=== PATIENT | female | born 1980 | race Caucasian/White ===

== ENCOUNTER 2018-12-11 21:59 | Emergency (ER) | payer MEDICAID ==
[~2018-12-11] VITALS: Ht 160 cm; Wt 90.0 kg
[~2018-12-11 21:59] MED LIST: CLIN300C11 PO; HYDR-4226 PO; LISD30CA PO; LORA1TAB PO; SULF-109 PO
--- NOTE | 2018-12-11 22:19 | ED EENT ---
History of Present Illness General Chief Complaint: Oral/Throat Problems Stated Complaint: SORE THROAT Nursing Triage Note: Pt ambulates to triage with c/o sore throat, coughing, n/v x 2 wks. Pt states it wakes up her up at night. Source: patient Exam Limitations: no limitations History of Present Illness Date Seen by Provider: Dec 11, 2018 Time Seen by Provider: 22:19 Allergies and Home Medications Allergies Coded Allergies: No Known Drug Allergies (Unverified , 08/08/09) Home Medications Benzonatate 100 Mg Capsule, 200 MG PO Q8H PRN for COUGH Prescribed by: MAXIME SCHMITT on 12/11/182236 Clindamycin HCl 300 Mg Capsule, 300 MG PO Q6H Prescribed by: NATHALY ARMSTRONG on 12/16/161914 Hydrocodone/Acetaminophen 1 Each Tablet, 1 EACH PO Q4H PRN for PAIN-SEVERE dO NOT FILL UNLESS CLINDAMYCIN IS ALSO FILLED Prescribed by: NATHALY ARMSTRONG on 12/16/161914 Lisdexamfetamine Dimesylate 30 Mg Capsule, 30 MG PO DAILY, (Reported) Lorazepam 1 Mg Tablet, 1 MG PO HS PRN, (Reported) Prednisone 20 Mg Tab, 40 MG PO DAILY Prescribed by: MAXIME SCHMITT on 12/11/182236 Sulfamethoxazole/Trimethoprim 1 Tab Tablet, 1 TAB PO BID Prescribed by: NATHALY BUNCH on 08/08/09 0740 Past Wioopkk-Zblycz-Jetoie Hx Patient Social History Alcohol Use: Denies Use Recreational Drug Use: No Smoking Status: Current Everyday Smoker Type Used: Cigarettes 2nd Hand Smoke Exposure: No Recent Foreign Travel: No Contact w/Someone Who Travel: No Recent Infectious Disease Expo: No Recent Hopitalizations: No Physical Abuse: No Sexual Abuse: No Mistreated: No Fear: No Seasonal Allergies Seasonal Allergies: No Past Medical History Surgeries: Yes (D&C) Respiratory: No Cardiac: No 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 oz. 72.769042cn; 35.00 BMI Method:Stated Progress/Results/Core Measures Results/Orders My Orders Orders - MAXIME SCHMITT Rx-Albuterol Inhaler (Rx-Proair) (12/11/18 22:30) Prednisone Tablet (Deltasone Tablet) (12/11/18 22:30) Benzonatate Capsule (Tessalon Perles) (12/11/18 22:30) Vital Signs/I&O 12/11/18 22:04 Temp 36.9 Pulse 103 Resp 20 B/P (MAP) 154/95 (114) Pulse Ox 100 O2 Delivery Room Air Blood Pressure Mean: 114 POS Departure Impression Primary Impression: Acute viral bronchiolitis Disposition: HOME, SELF-CARE Condition: Improved Departure-Patient Inst. Decision time for Depature: 22:33 Referrals: NO,LOCAL PHYSICIAN (PCP/Family) Primary Care Physician Patient Instructions: Acute Bronchitis, Adult (DC) Add. Discharge Instructions: All discharge instructions reviewed with patient and/or family. Voiced understanding. Medications as instructed. Evku-mih-eawsgza Tylenol, Motrin, decongestants and and histamines as directed for symptomatic relief. Afrin n booker spray [id number] as needed. Follow-up with your primary care provider of choice for recheck as outpatient. Call for appointment time. Return to the emergency department for worsened symptoms or any other concerns. Scripts Benzonatate (TESSALON PERLES) 100 Mg Capsule 200 MG PO Q8H PRN for COUGH, #30 CAP 0 Refills Prov: MAXIME SCHMITT 12/11/18 Prednisone (Prednisone) 20 Mg Tab 40 MG PO DAILY, #10 TAB 0 Refills Prov: MAXIME SCHMITT 12/11/18 MAXIME SCHMITT Dec 11, 2018 22:19 POS
[2018-12-11] MEDS ORDERED: RX-ALBUTEROL INHALER (PROAIR) 8.5 GM IH STA (22:30)
[2018-12-11] MEDS ORDERED: predniSONE 20 MG TAB PO ONE (22:30)
[2018-12-11] MEDS ORDERED: BENZONATATE 100 MG (TESSALON) CAPSULE PO ONE (22:30)
[2018-12-11] MEDS ORDERED: PRD20T PO (22:37)
[2018-12-11] MEDS ORDERED: BENZ100C18 PO (22:37)
[2018-12-11 22:48] VITALS: BP 135/89
== END 2018-12-11 22:48 | disposition home or self-care (01) ==
LOC: EDUNIT# 21:59 → ER 22:00
DX: J21.8 Acute bronchiolitis due to other specified organisms (principal); F17.210 Nicotine dependence, cigarettes, uncomplicated
CPT/HCPCS: 99283

== ENCOUNTER 2019-10-03 18:10 | Emergency (ER) | payer MEDICAID ==
[~2019-10-03] VITALS: Ht 160 cm; Wt 93.7 kg
[~2019-10-03 18:10] MED LIST changes: +BENZ100C18 PO; +PRD20T PO
[2019-10-03 18:29] LABS: BILIRUBIN,URINE NEGATIVE (NEGATIVE); CLARITY,URINE CLEAR; COLOR,URINE YELLOW; GLUCOSE, URINE (UA) NEGATIVE (NEGATIVE); KETONES,URINE NEGATIVE (NEGATIVE); LEUKOCYTE ESTERASE ,URINE 2+ (NEGATIVE); NITRITE,URINE POSITIVE (NEGATIVE); PH,URINE 5.5 (5-9); PROTEIN,URINE 1+ (NEGATIVE)
--- NOTE | 2019-10-03 18:37 | ED Back Pain ---
General Chief Complaint: Back Problems Stated Complaint: LOWER BACK PAIN Nursing Triage Note: pt presents to ed with complaints of uti s/s starting last week and r flank pain starting today along with nausea and chills. Nursing Sepsis Screen: No Definite Risk Source of Information: Patient Exam Limitations: No Limitations History of Present Illness Date Seen by Provider: Oct 03, 2019 Time Seen by Provider: 18:34 Initial Comments To ER with reports of urinary tract infection symptoms that began last week. She treated this at home with increased fluid intake and cranberry juice and symptoms began to get better. 2-3 days ago she started on [id number] AZO supplement which seemed to alleviate her symptoms altogether but this morning she awakened with right flank pain nausea and chills. Location: Paraspinous Muscles Timing/Duration: 1 Week Severity: Moderate Pain/Injury Location: Back Associated Symptoms: denies symptoms Allergies and Home Medications Allergies Coded Allergies: No Known Drug Allergies (Unverified , 08/08/09) Home Medications Benzonatate 100 Mg Capsule, 200 MG PO Q8H PRN for COUGH Prescribed by: MAXIME SCHMITT on 12/11/182236 Clindamycin HCl 300 Mg Capsule, 300 MG PO Q6H Prescribed by: NATHALY ARMSTRONG on 12/16/161914 Hydrocodone/Acetaminophen 1 Each Tablet, 1 EACH PO Q4H PRN for PAIN-SEVERE dO NOT FILL UNLESS CLINDAMYCIN IS ALSO FILLED Prescribed by: NATHALY ARMSTRONG on 12/16/161914 Lisdexamfetamine Dimesylate 30 Mg Capsule, 30 MG PO DAILY, (Reported) Lorazepam 1 Mg Tablet, 1 MG PO HS PRN, (Reported) Prednisone 20 Mg Tab, 40 MG PO DAILY Prescribed by: MAXIME SCHMITT on 12/11/182236 Sulfamethoxazole/Trimethoprim 1 Tab Tablet, 1 TAB PO BID Prescribed by: NATHALY BUNCH on 08/08/09 0740 Patient Home Medication List Home Medication List Reviewed: Yes (it's like Pyridium it doesn't treat the infection just) Review of Systems Constitutional: see HPI, chills EENTM: see HPI Respiratory: no symptoms reported Cardiovascular: no symptoms reported Gastrointestinal: nausea Genitourinary: no symptoms reported Musculoskeletal: no symptoms reported Skin: no symptoms reported Psychiatric/Neurological: No Symptoms Reported Past Zbujgam-Finkwm-Lkpgfj Hx Patient Social History Alcohol Use: Occasionally Uses Recreational Drug Use: No Smoking Status: Current Everyday Smoker Type Used: Cigarettes 2nd Hand Smoke Exposure: No Recent Foreign Travel: No Contact w/Someone Who Travel: No Recent Infectious Disease Expo: No Recent Hopitalizations: No Physical Abuse: No Sexual Abuse: No Mistreated: No Fear: No Seasonal Allergies Seasonal Allergies: No Past Medical History Surgeries: Yes (D&C) Respiratory: No Cardiac: No 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 oz. 72.727218ew; 36.00 BMI Method:Stated General Appearance: No Apparent Distress Neck: Full Range of Motion, Normal Inspection Cardiovascular: Regular Rate, Rhythm, Normal Peripheral Pulses Respiratory: Lungs Clear, Normal Breath Sounds, No Accessory Muscle Use, No Respiratory Distress Gastrointestinal: Normal Bowel Sounds, Non Tender Back: CVA Tenderness (R) Extremity: Normal Capillary Refill, Normal Inspection Neurologic/Psychiatric: Alert, Oriented x3 Skin: Normal Color, Warm/Dry Progress/Results/Core Measures Results/Orders Lab Results Laboratory Tests Test 10/03/19 18:23 10/03/19 18:27 Range/Units Urine Color YELLOW Urine Clarity CLEAR Urine pH 5.5 5-9 Urine Specific [place] 1.015 L 1.016-1.022 Urine Protein 1+ H NEGATIVE Urine Glucose (UA) NEGATIVE NEGATIVE Urine Ketones NEGATIVE NEGATIVE Urine Nitrite POSITIVE H NEGATIVE Urine Bilirubin NEGATIVE NEGATIVE Urine Urobilinogen 0.2 < = 1.0 MG/DL Urine Leukocyte Esterase 2+ H NEGATIVE Urine RBC (Auto) 1+ H NEGATIVE Urine RBC 2-5 H /HPF Urine WBC 50-100 H /HPF Urine Crystals PRESENT H /LPF Urine Amorphous Sediment FEW LUIS CARLOS URATES H /LPF Urine Bacteria FEW H /HPF Urine Casts NONE /LPF Urine Mucus NEGATIVE /LPF Urine Culture Indicated YES Urine Test NEGATIVE NEGATIVE White Blood Count 15.5 H 4.3-11.0 10^3/uL Red Blood Count 5.05 4.35-5.85 10^6/uL Hemoglobin 15.0 11.5-16.0 G/DL Hematocrit 45 35-52 % Mean Corpuscular Volume 89 80-99 FL Mean Corpuscular Hemoglobin 30 25-34 PG Mean Corpuscular Hemoglobin Concent 34 32-36 G/DL Red Cell Distribution Width 13.9 10.0-14.5 % Platelet Count 498 H 130-400 10^3/uL Mean Platelet Volume 9.0 7.4-10.4 FL Neutrophils (%) (Auto) 79 H 42-75 % Lymphocytes (%) (Auto) 16 12-44 % Monocytes (%) (Auto) 4 0-12 % Eosinophils (%) (Auto) 1 0-10 % Basophils (%) (Auto) 0 0-10 % Neutrophils # (Auto) 12.2 H 1.8-7.8 X 10^3 Lymphocytes # (Auto) 2.5 1.0-4.0 X 10^3 Monocytes # (Auto) 0.7 0.0-1.0 X 10^3 Eosinophils # (Auto) 0.1 0.0-0.3 10^3/uL Basophils # (Auto) 0.0 0.0-0.1 10^3/uL Sodium Level 137 135-145 MMOL/L Potassium Level 3.9 3.6-5.0 MMOL/L Chloride Level 105 98-107 MMOL/L Carbon Dioxide Level 19 L 21-32 MMOL/L Anion Gap 13 5-14 MMOL/L Blood Urea Nitrogen 6 L 7-18 MG/DL Creatinine 0.69 0.60-1.30 MG/DL Estimat Glomerular Filtration Rate > 60 BUN/Creatinine Ratio 9 Glucose Level 118 H 70-105 MG/DL Calcium Level 9.3 8.5-10.1 MG/DL Corrected Calcium 9.2 8.5-10.1 MG/DL Total Bilirubin 0.5 0.1-1.0 MG/DL Aspartate Amino Transf (AST/SGOT) 11 5-34 U/L Alanine Aminotransferase (ALT/SGPT) 11 0-55 U/L Alkaline Phosphatase 90 40-136 U/L Total Protein 7.6 6.4-8.2 GM/DL Albumin 4.1 3.2-4.5 GM/DL My Orders Orders - NATHALY ARMSTRONG APRN Ua Culture If Indicated (10/03/19 18:21) Hcg,Qualitative Urine (10/03/19 18:21) Cbc With Automated Diff (10/03/19 18:32) Comprehensive Metabolic Panel (10/03/19 18:32) Ed Iv/Invasive Line Start (10/03/19 18:32) Ns Iv 1000 Ml (Sodium Chloride 0.9%) (10/03/19 18:45) Manual Differential (10/03/19 18:27) Ceftriaxone For Iv Use (Rocephin For I (10/03/19 19:00) Vital Signs/I&O 10/03/19 18:29 Temp 36.5 Pulse 117 Resp 20 B/P (MAP) 135/98 (110) Pulse Ox 97 Blood Pressure Mean: 110 Departure Impression Primary Impression: Pyelonephritis of right kidney Disposition: HOME, SELF-CARE Condition: Stable Departure-Patient Inst. Decision time for Depature: 18:56 Referrals: NO,LOCAL PHYSICIAN (PCP/Family) Primary Care Physician Patient Instructions: Kidney Infection (DC) Add. Discharge Instructions: 1. Tylenol and Motrin for any pain. Return to ER for any fevers, vomiting or nausea that is so bad that it prevents U from taking the antibiotics. The oral antibiotics tomorrow as directed. Follow-up with your doctor next week for recheck. All discharge instructions reviewed with patient and/or family. Voiced understanding. Scripts Sulfamethoxazole/Trimethoprim (Bactrim Ds Tablet) 1 Each Tablet 1 EACH PO BID, #14 TAB Prov: NATHALY ARMSTRONG APRN 10/03/19 Work/School Note: Work Release Form Date Seen in the Emergency Department: Oct 03, 2019 Return to Work: Oct 06, 2019 NATHALY ARMSTRONG APRN Oct 03, 2019 18:37
[2019-10-03 18:39] LABS: BACTERIA,URINE FEW /HPF; WBC,URINE 50-100 /HPF
[2019-10-03 18:39] LABS: BASOPHILS % (AUTO) 0 % (0-10); EOSINOPHILS # (AUTO) 0.1 10^3/uL (0.0-0.3); EOSINOPHILS % (AUTO) 1 % (0-10); HEMATOCRIT 45 % (35-52); LYMPHOCYTES # (AUTO) 2.5 X 10^3 (1.0-4.0); LYMPHOCYTES % (AUTO) 16 % (12-44); MEAN CORPUSCULAR HEMOGLOBIN 30 PG (25-34); MEAN CORPUSCULAR HGB CONC 34 G/DL (32-36); MEAN CORPUSCULAR VOLUME 89 FL (80-99); MONOCYTES # (AUTO) 0.7 X 10^3 (0.0-1.0); MONOCYTES % (AUTO) 4 % (0-12); NEUTROPHILS # (AUTO) 12.2 X 10^3 (1.8-7.8); NEUTROPHILS % (AUTO) 79 % (42-75); PLATELET COUNT 498 10^3/uL (130-400); RED CELL DISTRIBUTION WIDTH 13.9 % (10.0-14.5); WHITE BLOOD COUNT 15.5 10^3/uL (4.3-11.0)
[2019-10-03 18:40] LABS: AMORPHOUS SEDIMENT,UR FEW AMOR URATES /LPF
[2019-10-03 18:44] LABS: ALBUMIN 4.1 GM/DL (3.2-4.5); CHLORIDE 105 MMOL/L (98-107); POTASSIUM 3.9 MMOL/L (3.6-5.0); SODIUM 137 MMOL/L (135-145)
[2019-10-03 18:45] LABS: CALCIUM 9.3 MG/DL (8.5-10.1)
[2019-10-03] MEDS ORDERED: NS IV 1000 ML 1,000 ML IV SCH (18:45)
[2019-10-03 18:46] LABS: GLUCOSE 118 MG/DL (70-105); TOTAL PROTEIN 7.6 GM/DL (6.4-8.2)
[2019-10-03 18:47] LABS: CARBON DIOXIDE 19 MMOL/L (21-32)
[2019-10-03 18:48] LABS: BILIRUBIN,TOTAL 0.5 MG/DL (0.1-1.0)
[2019-10-03 18:50] LABS: ALKALINE PHOSPHATASE 90 U/L (40-136); CREATININE SERUM 0.69 MG/DL (0.60-1.30); GFR ESTIMATED > 60
[2019-10-03 18:51] LABS: BUN/CREATININE RATIO 9
[2019-10-03 18:53] LABS: ALANINE AMINOTRANSFERASE 11 U/L (0-55)
[2019-10-03] MEDS ORDERED: SULF1TAB35 PO (18:58)
[2019-10-03] MEDS ORDERED: cefTRIAXone FOR IV USE 2,000 MG in WATER (STERILE) FOR INJECTION 20 ML IV ONE (19:00)
[2019-10-03 19:15] LABS: BAND NEUTROPHILS 1 %; LYMPHOCYTES % (MANUAL) 19 %; MONOCYTES % (MANUAL) 3 %; NEUTROPHILS % (MANUAL) 77 %; RBC MORPH NORMAL
[2019-10-03 19:20] VITALS: BP 135/98
== END 2019-10-03 19:20 | disposition home or self-care (01) ==
LOC: EDUNIT# 18:10 → ER 18:14
DX: N12 Tubulo-interstitial nephritis, not specified as acute or chronic (principal); F17.210 Nicotine dependence, cigarettes, uncomplicated; Z79.52 Long term (current) use of systemic steroids
CPT/HCPCS: 36415; 80053; 81000; 84703; 85007; 85027; 87077; 87088; 87186

== ENCOUNTER 2019-11-22 16:27 | Emergency (ER) | payer MEDICAID ==
[~2019-11-22] VITALS: Ht 162 cm; Wt 108.8 kg
[~2019-11-22 16:27] MED LIST changes: +SULF1TAB35 PO
[2019-11-22 16:59] LABS: BASOPHILS % (AUTO) 0 % (0-10); EOSINOPHILS # (AUTO) 0.1 10^3/uL (0.0-0.3); EOSINOPHILS % (AUTO) 1 % (0-10); HEMATOCRIT 44 % (35-52); HEMOGLOBIN 14.8 g/dL (11.5-16.0); LYMPHOCYTES # (AUTO) 2.4 10^3/uL (1.0-4.0); LYMPHOCYTES % (AUTO) 26 % (12-44); MEAN CORPUSCULAR HEMOGLOBIN 30 pg (25-34); MEAN CORPUSCULAR HGB CONC 33 g/dL (32-36); MEAN CORPUSCULAR VOLUME 89 fL (80-99); MONOCYTES # (AUTO) 0.5 10^3/uL (0.0-1.0); MONOCYTES % (AUTO) 5 % (0-12); NEUTROPHILS # (AUTO) 6.4 10^3/uL (1.8-7.8); NEUTROPHILS % (AUTO) 67 % (42-75); PLATELET COUNT 429 10^3/uL (130-400); WHITE BLOOD COUNT 9.6 10^3/uL (4.3-11.0)
[2019-11-22] MEDS ORDERED: TETANUS,DIPTH,PERTUSS P/F (BOOSTRIX) 0.5 ML VIAL IM ONE (17:00)
[2019-11-22 17:12] LABS: ALBUMIN 4.4 GM/DL (3.2-4.5); CHLORIDE 104 MMOL/L (98-107); POTASSIUM 3.6 MMOL/L (3.6-5.0); SODIUM 140 MMOL/L (135-145)
[2019-11-22 17:13] LABS: CALCIUM 9.4 MG/DL (8.5-10.1)
[2019-11-22 17:15] LABS: GLUCOSE 91 MG/DL (70-105); TOTAL PROTEIN 7.6 GM/DL (6.4-8.2)
[2019-11-22 17:16] LABS: CARBON DIOXIDE 22 MMOL/L (21-32)
[2019-11-22 17:17] LABS: BILIRUBIN,TOTAL 0.4 MG/DL (0.1-1.0)
[2019-11-22 17:18] LABS: ALKALINE PHOSPHATASE 88 U/L (40-136); CREATININE SERUM 0.71 MG/DL (0.60-1.30); GFR ESTIMATED > 60
[2019-11-22 17:19] LABS: BUN/CREATININE RATIO 14
[2019-11-22 17:21] LABS: ALANINE AMINOTRANSFERASE 12 U/L (0-55); MAGNESIUM 1.8 MG/DL (1.6-2.4)
[2019-11-22 17:37] LABS: BILIRUBIN,URINE NEGATIVE (NEGATIVE); CLARITY,URINE CLEAR; COLOR,URINE YELLOW; GLUCOSE, URINE (UA) NEGATIVE (NEGATIVE); KETONES,URINE NEGATIVE (NEGATIVE); LEUKOCYTE ESTERASE ,URINE NEGATIVE (NEGATIVE); NITRITE,URINE NEGATIVE (NEGATIVE); PROTEIN,URINE NEGATIVE (NEGATIVE)
[2019-11-22 17:49] LABS: BACTERIA,URINE FEW /HPF; RBC,URINE RARE /HPF
--- NOTE | 2019-11-22 18:31 | ED Syncope ---
General Chief Complaint: Dizziness/Syncope Stated Complaint: SYNCOPE Nursing Triage Note: PT REPORTS FAINTING AROUND 1540 AFTER COUGHING REALLY HARD. PT REPORTS COUGH IS CHRONIC FROM SMOKING. Source of Information: Patient Exam Limitations: No Limitations History of Present Illness Date Seen by Provider: Nov 22, 2019 Time Seen by Provider: 16:47 Initial Comments This 39-year-old woman presents to the emergency room with complaints of a syncopal episode. She was walking and sat down at a picnic table. She notes having a harsh coughing fit. She denies any prodrome of lightheadedness, dizziness, chest pain, shortness of breath, etc. She recalls her head hitting the ground. She has subtle abrasion on her left face. She reports her cough is not a new problem. She has had paroxysms of coughing related to smoking for at least 6 months, prior to the COVID pandemic. She denies other symptoms of COVID such as headache, diarrhea, fever, sore throat, etc. She has no known COVID exposures. She denies any prior experiences of syncope. Allergies and Home Medications Allergies Coded Allergies: No Known Drug Allergies (Unverified , 08/08/09) Home Medications Benzonatate 100 Mg Capsule, 200 MG PO Q8H PRN for COUGH Prescribed by: MAXIME SCHMITT on 12/11/182236 Clindamycin HCl 300 Mg Capsule, 300 MG PO Q6H Prescribed by: NATHALY ARMSTRONG on 12/16/161914 Hydrocodone/Acetaminophen 1 Each Tablet, 1 EACH PO Q4H PRN for PAIN-SEVERE dO NOT FILL UNLESS CLINDAMYCIN IS ALSO FILLED Prescribed by: NATHALY ARMSTRONG on 12/16/161914 Lisdexamfetamine Dimesylate 30 Mg Capsule, 30 MG PO DAILY, (Reported) Lorazepam 1 Mg Tablet, 1 MG PO HS PRN, (Reported) Prednisone 20 Mg Tab, 40 MG PO DAILY Prescribed by: MAXIME SCHMITT on 12/11/182236 Sulfamethoxazole/Trimethoprim 1 Tab Tablet, 1 TAB PO BID Prescribed by: NATHALY BUNCH on 08/08/09 0740 Sulfamethoxazole/Trimethoprim 1 Each Tablet, 1 EACH PO BID Prescribed by: NATHALY ARMSTRONG on 10/03/19 1858 Patient Home Medication List Home Medication List Reviewed: Yes Review of Systems Constitutional: no symptoms reported EENTM: no symptoms reported Respiratory: see HPI Cardiovascular: see HPI Gastrointestinal: no symptoms reported Genitourinary: no symptoms reported : No Musculoskeletal: no symptoms reported Skin: no symptoms reported Psychiatric/Neurological: No Symptoms Reported Past Yxadngf-Lgqbwq-Xytofb Hx Past Med/Social Hx: Reviewed Nursing Past Med/Soc Hx Patient Social History Alcohol Use: Occasionally Uses Recreational Drug Use: Yes Drug of Choice: MARIJUANA Smoking Status: Current Everyday Smoker Type Used: Cigarettes 2nd Hand Smoke Exposure: No Recent Foreign Travel: No Contact w/Someone Who Travel: No Recent Infectious Disease Expo: No Recent Hopitalizations: No Seasonal Allergies Seasonal Allergies: No Past Medical History Surgeries: Yes (D&C) Respiratory: No Cardiac: No Neurological: Yes (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 oz. 72.347018fi; 41.00 BMI Method:Stated General Appearance: No Apparent Distress, WD/WN HEENT: PERRL/EOMI, Other (no dental injury. 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 Motor/Sensory: No Sensory Deficit, No Pronator Drift Skin: Normal Color, Warm/Dry Progress/Results/Core Measures Results/Orders Lab Results Laboratory Tests Test 11/22/19 16:41 11/22/19 17:28 Range/Units White Blood Count 9.6 4.3-11.0 10^3/uL Red Blood Count 4.99 3.80-5.11 10^6/uL Hemoglobin 14.8 11.5-16.0 g/dL Hematocrit 44 35-52 % Mean Corpuscular Volume 89 80-99 fL Mean Corpuscular Hemoglobin 30 25-34 pg Mean Corpuscular Hemoglobin Concent 33 32-36 g/dL Red Cell Distribution Width 13.6 10.0-14.5 % Platelet Count 429 H 130-400 10^3/uL Mean Platelet Volume 9.0 9.0-12.2 fL Immature Granulocyte % (Auto) 0 % Neutrophils (%) (Auto) 67 42-75 % Lymphocytes (%) (Auto) 26 12-44 % Monocytes (%) (Auto) 5 0-12 % Eosinophils (%) (Auto) 1 0-10 % Basophils (%) (Auto) 0 0-10 % Neutrophils # (Auto) 6.4 1.8-7.8 10^3/uL Lymphocytes # (Auto) 2.4 1.0-4.0 10^3/uL Monocytes # (Auto) 0.5 0.0-1.0 10^3/uL Eosinophils # (Auto) 0.1 0.0-0.3 10^3/uL Basophils # (Auto) 0.0 0.0-0.1 10^3/uL Immature Granulocyte # (Auto) 0.0 0.0-0.1 10^3/uL Sodium Level 140 135-145 MMOL/L Potassium Level 3.6 3.6-5.0 MMOL/L Chloride Level 104 98-107 MMOL/L Carbon Dioxide Level 22 21-32 MMOL/L Anion Gap 14 5-14 MMOL/L Blood Urea Nitrogen 10 7-18 MG/DL Creatinine 0.71 0.60-1.30 MG/DL Estimat Glomerular Filtration Rate > 60 BUN/Creatinine Ratio 14 Glucose Level 91 70-105 MG/DL Calcium Level 9.4 8.5-10.1 MG/DL Corrected Calcium 9.1 8.5-10.1 MG/DL Magnesium Level 1.8 1.6-2.4 MG/DL Total Bilirubin 0.4 0.1-1.0 MG/DL Aspartate Amino Transf (AST/SGOT) 13 5-34 U/L Alanine Aminotransferase (ALT/SGPT) 12 0-55 U/L Alkaline Phosphatase 88 40-136 U/L Troponin I < 0.028 <0.028 NG/ML Total Protein 7.6 6.4-8.2 GM/DL Albumin 4.4 3.2-4.5 GM/DL Serum Test, Qualitative NEGATIVE NEGATIVE Urine Color YELLOW Urine Clarity CLEAR Urine pH 6.0 5-9 Urine Specific [place] 1.025 H 1.016-1.022 Urine Protein NEGATIVE NEGATIVE Urine Glucose (UA) NEGATIVE NEGATIVE Urine Ketones NEGATIVE NEGATIVE Urine Nitrite NEGATIVE NEGATIVE Urine Bilirubin NEGATIVE NEGATIVE Urine Urobilinogen 0.2 < = 1.0 MG/DL Urine Leukocyte Esterase NEGATIVE NEGATIVE Urine RBC (Auto) NEGATIVE NEGATIVE Urine RBC RARE /HPF Urine WBC NONE /HPF Urine Squamous Epithelial Cells 2-5 /HPF Urine Crystals NONE /LPF Urine Bacteria FEW H /HPF Urine Casts NONE /LPF Urine Mucus NEGATIVE /LPF Urine Culture Indicated NO My Orders Orders - PEDRO GAMING MD Cbc With Automated Diff (11/22/19 16:47) Comprehensive Metabolic Panel (11/22/19 16:47) Hcg,Qualitative Serum (11/22/19 16:47) Magnesium (11/22/19 16:47) Troponin I (11/22/19 16:47) Ua Culture If Indicated (11/22/19 16:47) Ed Iv/Invasive Line Start (11/22/19 16:47) Ekg Tracing (11/22/19 16:47) Monitor-Rhythm Ecg Trace Only (11/22/19 16:47) Dipht,Pertuss(Acell),Tet Adult (Boostrix (11/22/19 17:00) Medications Given in ED Current Medications Medications Dose Ordered Sig/Matt Route Start Time Stop Time Status Last Admin Dose Admin Diphtheria/ Tetanus/Acell Pertussis 0.5 ml ONCE ONCE IM 11/22/19 17:00 11/22/19 17:01 DC 11/22/19 17:21 0.5 ML Vital Signs/I&O 11/22/19 11/22/19 16:30 18:32 Temp 36.4 36.7 Pulse 99 93 Resp 16 16 B/P (MAP) 134/111 (119) 105/83 Pulse Ox 97 97 O2 Delivery Room Air Room Air Blood Pressure Mean: 119 Progress Progress Note : Progress Note Patient was given a tetanus booster. Workup was unremarkable. I suspect her syncope was related to vasovagal response. She was advised to follow up closely with her primary care provider and work hard toward quitting smoking. Initial ECG Impression Date: Nov 22, 2019 Initial ECG Impression Time: 16:52 Initial ECG Rate: 83 Initial ECG Rhythm: Normal Sinus Initial ECG Impression: Normal Comment Normal sinus rhythm with no ST elevation or depression. No abnormal intervals or axis deviation. Departure Impression Primary Impression: Syncope Qualified Codes: R55 - Syncope and collapse Additional Impressions: Facial abrasion Qualified Codes: S00.81XA - Abrasion of other part of head, initial encounter Chronic cough Disposition: HOME, SELF-CARE Condition: Improved Departure-Patient Inst. Decision time for Depature: 18:31 Referrals: NO,LOCAL PHYSICIAN (PCP/Family) Primary Care Physician Patient Instructions: Syncope (Fainting) (DC), Vasovagal Response Add. Discharge Instructions: Drink plenty of clear liquids to stay well-hydrated. Work toward quitting smoking. Follow-up with your primary care provider soon as possible. Return to the emergency room if you have any worsening problems. All discharge instructions reviewed with patient and/or family. Voiced understanding. PEDRO GAMING MD Nov 22, 2019 18:31
[2019-11-22 18:32] VITALS: BP 105/83
== END 2019-11-22 18:32 | disposition home or self-care (01) ==
LOC: EDUNIT# 16:27 → ER 16:28
DX: S00.81XA Abrasion of other part of head, initial encounter (principal); R55 Syncope and collapse; R05 Cough; F17.210 Nicotine dependence, cigarettes, uncomplicated; Z23 Encounter for immunization; Z79.52 Long term (current) use of systemic steroids; W22.8XXA Striking against or struck by other objects, initial encounter
CPT/HCPCS: 36415; 80053; 81000; 83735; 84484; 84703; 85025; 90715; 93041